=== PATIENT | male | born 1955 | race African-American/Black ===

== ENCOUNTER → 2017-05-15 | Outpatient (CLI) | payer OTHER ==
--- NOTE | 2017-05-15 19:44 | Diagnostic Imaging Report ---
PROCEDURE:X-RAY ABDOMEN - KUB COMPARISON:[facility], DX, ABDOMEN-1VIEW (KUB), 05/08/2016, 17:18. INDICATIONS:CHECK UP, stones FINDINGS: Nonobstructed bowel gas pattern. Stable 3 mm radiopaque density projecting in the lower pole of the left kidney. Previously visualized calcific density in the right renal shadow as well as a second calcific density in the left renal shadow are not clearly seen on the current exam. No calcifications project over the expected course of the ureters or bladder. No acute bony abnormalities. CONCLUSION: Stable 3 mm radiopaque density in the lower pole of the left kidney, likely a nonobstructing calculus. Bogdan Swan M.D. Dictated by: Bogdan Swan M.D. on 05/15/2017 at 19:52 Electronically approved by: Bogdan Swan M.D. on 05/15/2017 at 19:52
== END ==
LOC: RAD 16:36
PROVIDERS: ATTEND Urology
DX: N20.0 Calculus of kidney (principal)
CPT/HCPCS: 74000

== ENCOUNTER → 2017-12-27 | Outpatient (CLI) | payer OTHER ==
--- NOTE | 2017-12-27 13:08 | Diagnostic Imaging Report ---
PROCEDURE:X-RAY ABDOMEN - KUB COMPARISON:KUB 05/22/17 and KUB 05/08/16. INDICATIONS:CALCULUS OF THE KIDNEY FINDINGS: Again noted is a 3 mm calcification projecting over the left lower pole kidney and 2 mm calcification which projects over the mid pole. No calcifications project over the expected course of the ureters or the bladder. There is a non-obstructed bowel-gas pattern. There are no acute osseous abnormalities. CONCLUSION: Stable 2-3 mm calcifications projecting over the left kidney, likely renal stones. Dictated by: GAURANG GARCIA M.D. on 12/27/2017 at 13:14 Electronically approved by: GAURANG GARCIA M.D. on 12/27/2017 at 13:14
== END ==
LOC: RAD 12:11
PROVIDERS: ATTEND Urology
DX: N20.0 Calculus of kidney (principal)
CPT/HCPCS: 74018

== ENCOUNTER 2018-11-30 09:00 | Inpatient (IN) | payer OTHER, MEDICARE ==
[2018-11-29 09:41] LABS: BASOPHILS % 0.4 % (0.0-1.0); EOSINOPHILS # (AUTO) 0.4 (0.0-0.4); EOSINOPHILS % 3.8 % (0.0-6.0); HEMATOCRIT 40.5 % (38.2-49.6); HEMOGLOBIN 13.5 g/dL (14.0-18.0); LYMPHOCYTES # (AUTO) 3.2 (1.0-3.2); LYMPHOCYTES % 33.2 % (18.0-39.1); MEAN CORPUSCULAR HEMOGLOBIN 29.2 pg (28-32); MEAN CORPUSCULAR HGB CONC 33.3 g/dL (31-35); MEAN CORPUSCULAR VOLUME 87.7 fL (81-99); MONOCYTES # (AUTO) 0.7 (0.2-0.8); MONOCYTES % 7.3 % (4.4-11.3); NEUTROPHILS # (AUTO) 5.3 (2.1-6.9); NEUTROPHILS % 54.9 % (38.7-80.0); PLATELET COUNT 286 x10e3/uL (140-360); RED BLOOD COUNT 4.62 x10e6/uL (4.3-5.7); RED CELL DISTRIBUTION WIDTH 13.6 % (11.7-14.4)
[2018-11-29 09:57] LABS: ANION GAP 12.9 mmol/L (8-16); CALCIUM 10.4 mg/dL (8.4-10.2); CREATININE, SERUM 1.47 mg/dL (0.72-1.25); POTASSIUM 3.9 mmol/L (3.5-5.1)
--- NOTE | 2018-11-29 10:23 | Diagnostic Imaging Report ---
EXAMINATION: CHEST 2 VIEWS INDICATION: Preoperative COMPARISON: None FINDINGS: TUBES and LINES: None. LUNGS: The lung volumes are normal. No focal consolidation or pulmonary edema. PLEURA: No pleural effusion or pneumothorax. HEART AND MEDIASTINUM: The cardiomediastinal silhouette is normal in size and contour. BONES AND SOFT TISSUES: No acute fracture or dislocation. Mild degenerative changes of the visualized spine. UPPER ABDOMEN: No free air under the diaphragm. IMPRESSION: No focal pneumonia or pulmonary edema. Signed by: Feliciano Morrell MD on 11/29/2018 10:20 AM
[~2018-11-30] VITALS: Ht 175.3 cm; Wt 95.7 kg
[~2018-11-30 09:00] MED LIST: ATORVASTATIN CA20 MG PO; B&O 60MG R/S 60 MG SUPP PR ONE; BYSTOLIC10 MG PO; CEFTRIAXONE SOD 1 GM/NS 50 ML 50 ML IV ONE; FINASTERIDE5 MG PO; FLOMAX0.4 MG PO; GENTAMICIN 80MG/NS 100 ML 200 ML IV ONE; IOPAMIDOL 300MG/ML 50ML INFUS..BTL IV ONE; LOSARTAN POTASS25 MG PO; METFORMIN HCL500 MG PO; NEXIUM40 MG PO; SODIUM CHLORIDE 0.9% 1000ML 1,000 ML ONE
[2018-11-30] MEDS ORDERED: ACETAMINOPHEN/CODEINE 300MG - 30MG TAB PO PRN (10:00)
[2018-11-30] MEDS ORDERED: DIPHENHYDRAMINE HCL INJ 50 MG/ML VIAL IM PRN (10:00)
[2018-11-30] MEDS ORDERED: DIPHENHYDRAMINE HCL 25 MG CAP PO PRN (10:00)
[2018-11-30] MEDS ORDERED: ONDANSETRON HCL INJ 2MG/ML 2ML 2 MG/ML VIAL IV PRN (10:00)
[2018-11-30] MEDS ORDERED: BELLADONNA/OPIUM 30 MG SUPP RC PRN (10:00)
[2018-11-30] MEDS ORDERED: FENTANYL CITRATE/PF 100MCG/2 ML INJ ONE ×2 (10:03→15:02)
[2018-11-30] MEDS ORDERED: HYDROMORPHONE 2MG/ML 2 MG/ML ML ONE (10:30)
--- OUTSIDE RECORDS SUMMARY | 2018-11-30 11:40 | XMS REPORT ---
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 Allergies, Adverse Reactions, Alerts This patient has no known allergies or adverse reactions. Medications This patient has no known medications. Encounters Start Date/Time End Date/Time Encounter Type Admission Type Attending [facility] Care Department Encounter ID 2018-11-04 15:22:00 2018-11-04 15:22:00 Emergency E [facility]SE [id number] Results Test Description Test Time Test Comments Text Results Atomic Results Result Comments CHEST 2 VIEWS 2018-11-29 10:19:00 [place] [id number] Patient Name: OVIDIO BYRNE MR #: [id number] : 1955 Age/Sex: 63/M Req #: [id number] Adm Physician: Ordered by: LESLIE MACKEY MD Report #: [id number] Location: OR Room/Bed: Procedure: [id number] DX/CHEST 2 VIEWS Exam Date: 11/29/18 Exam Time: 919 REPORT STATUS: Signed EXAMINATION: CHEST 2 VIEWS INDICATION: Preoperative COMPARISON: None FINDINGS: TUBES and LINES: None. LUNGS: The lung volumes are normal. No focal consolidation or pulmonary edema. PLEURA: No pleural effusion or pneumothorax. HEART AND MEDIASTINUM: The cardiomediastinal silhouette is normal in size and contour. BONES AND SOFT TISSUES: No acute fracture or dislocation. Mild degenerative changes of the visualized spine. UPPER ABDOMEN: No free air under the diaphragm. IMPRESSION: No focal pneumonia or pulmonary edema. Signed by: Dany Herrera MD on 11/29/2018 10:20 AM Dictated By: DANY HERRERA MD 1020 Transcribed By: JEROME on 11/29/18 1020 COPY TO: LESLIE MACKEY MD ABDOMEN-1VIEW (KUB) 2017-12-27 13:14:00 [place] [id number] Patient Name: OVIDIO BYRNE MR #: [id number] : 1955 Age/Sex: 62/M Req #: [id number] Adm Physician: Ordered by: LESLIE MACKEY MD Report #: [id number] Location: [facility] Room/Bed: Procedure: [id number] DX/ABDOMEN-1VIEW (KUB) Exam Date: 12/27/17 Exam Time: 1240 REPORT STATUS: Signed PROCEDURE: X-RAY ABDOMEN - KUB COMPARISON: KUB 05/22/17 and KUB 05/08/16. INDICATIONS: CALCULUS OF THE KIDNEY FINDINGS: Again noted is a 3 mm calcification projecting over the left lower pole kidney and 2 mm calcification which projects over the mid pole. No calcifications project over the expected course of the ureters or the bladder. There is a non-obstructed bowel-gas pattern. There are no acute osseous abnormalities. CONCLUSION: Stable 2-3 mm calcifications projecting over the left kidney, likely renal stones. Dictated by: GAURANG GARCIA M.D. on 12/27/2017 at 13:14 Electronically approved by: GAURANG GARCIA M.D. on 12/27/2017 at 13:14 Dictated By: GAURANG GARCIA MD 1314 Transcribed By: NURY on 12/27/17 1314 COPY TO: LESLIE MACKEY MD ABDOMEN-1VIEW (KUB) [place] [address] Patient Name: OVIDIO BYRNE MR #: [id number] : 1955 Age/Sex: 62/M Req #: [id number] Adm Physician: Ordered by: LESLIE MACKEY MD Report #: [id number] Location: [facility] Room/Bed: Procedure: [id number] DX/ABDOMEN-1VIEW (KUB) Exam Date: 05/15/17 Exam Time: 1648 REPORT STATUS: Signed PROCEDURE: X-RAY ABDOMEN - KUB COMPARISON: [facility], DX, ABDOMEN-1VIEW (KUB), 05/08/2016, 17:18. INDICATIONS: CHECK UP, stones FINDINGS: Nonobstructed bowel gas pattern. Stable 3 mm radiopaque density projecting in the lower pole of the left kidney. Previously visualized calcific density in the right renal shadow as well as a second calcific density in the left renal shadow are not clearly seen on the current exam. No calcifications project over the expected course of the ureters or bladder. No acute bony abnormalities. CONCLUSION: Stable 3 mm radiopaque density in the lower pole of the left kidney, likely a nonobstructing calculus. Zahira Swan M.D. Dictated by: Zahira Swan M.D. on 05/15/2017 at 19:52 Electronically approved by: Zahira Swan M.D. on 05/15/2017 at 19:52 Dictated By: ZAHIRA SWAN MD 51 Transcribed By: NURY on 05/15/171951 COPY TO: LESLIE MACKEY MD
--- NOTE | 2018-11-30 11:50 | NUR ---
received report from brazing furnace feeder. pt s/p cystoscopy, laser of stones, and TURP, 24 irish jones with continuous irrigation, output is pinkish red. vitals 105/57, hr 73, rr 18, o2 sat 99% on RA, 97.4 F. pt last received 0.5mg of dilaudid at 1027 am in PACU. pt has PHUONG hose and SCD devices bilateral. R hand 20g with LR runnning.
[2018-11-30 12:13] LABS: BASOPHILS % 0.2 % (0.0-1.0); EOSINOPHILS % 0.1 % (0.0-6.0); HEMATOCRIT 40.2 % (38.2-49.6); HEMOGLOBIN 13.4 g/dL (14.0-18.0); LYMPHOCYTES # (AUTO) 1.7 (1.0-3.2); LYMPHOCYTES % 10.5 % (18.0-39.1); MEAN CORPUSCULAR HEMOGLOBIN 29.1 pg (28-32); MEAN CORPUSCULAR HGB CONC 33.3 g/dL (31-35); MEAN CORPUSCULAR VOLUME 87.4 fL (81-99); MONOCYTES # (AUTO) 0.5 (0.2-0.8); NEUTROPHILS # (AUTO) 13.7 (2.1-6.9); NEUTROPHILS % 85.8 % (38.7-80.0); PLATELET COUNT 255 x10e3/uL (140-360); RED CELL DISTRIBUTION WIDTH 13.5 % (11.7-14.4)
[2018-11-30 12:23] VITALS: BP 135/68
[2018-11-30] MEDS ORDERED: B&O 60MG R/S 60 MG SUPP PR PRN (12:30)
[2018-11-30] MEDS ORDERED: DEXTROSE 50% SYRINGE 50 ML IV PRN (12:30)
[2018-11-30 12:31] LABS: ANION GAP 15.5 mmol/L (8-16); CALCIUM 9.4 mg/dL (8.4-10.2); CREATININE, SERUM 1.51 mg/dL (0.72-1.25); POTASSIUM 4.5 mmol/L (3.5-5.1)
--- NOTE | 2018-11-30 12:36 | History and Physical ---
CABLE TELEVISION TECHNICIAN: Dr. Bi Rodas. The patient is status post TURP procedure, cystoscopy. He had gross hematuria postprocedure, Davidson catheter. The patient require continuous urinary bladder irrigation. HISTORY: A 63-year-old male with recurrent urinary tract infection and urinary retention, now is status post TURP procedure. The patient has gross hematuria. He will continue with irrigation at this time. The patient is otherwise stable. PAST MEDICAL HISTORY: Enlarged prostate, recurrent prostatitis, dyslipidemia, reflux, hypertension, diabetes type 2 on diet and metformin. SOCIAL HISTORY: The patient does not smoke or use alcohol. No recreational drug use. ALLERGIES: NO KNOWN ALLERGIES. HOME MEDICATIONS: Lipitor, Nexium, finasteride, losartan, metformin, Bystolic, and Flomax. PHYSICAL EXAMINATION: VITAL SIGNS: Temperature is 98, blood pressure 105/57, pulse rate 70, respirations 18. GENERAL: The patient is not in acute distress. He is awake. HEENT: Normocephalic, atraumatic. Pupils reactive. Anicteric. NECK: Supple grossly. PULMONARY: Diminished breath sounds. CARDIOVASCULAR: S1, S2. Regular rate and rhythm. ABDOMEN: Soft. Davidson catheter in place. EXTREMITIES: No cyanosis or edema. NEUROLOGIC: No gross focal deficit. LABORATORY DATA: WBC is 15.9, hemoglobin is 13, hematocrit of 40, platelets 225. Chemistry; sodium 139, potassium 3.9, chloride 103, bicarb 27, BUN is 15, creatinine 1.4, glucose is 158. IMPRESSION: 1. Status post TURP procedure. 2. Gross hematuria. 3. Reactive leukocytosis most likely. 4. Slight increase in creatinine, most likely postop. PLAN: Continue to monitor the patient closely. IV fluids. Resume some home medication. We will hold off the metformin due to creatinine of 1.47. We will continue with other medication. We will check the patient's blood pressure, but we will hold off the losartan for now. Continue with Bystolic. We will monitor the patient closely. We will check the patient's lab work as well. MD MARYCHUY Painter/PAOLA /[id number]
[2018-11-30 12:50] VITALS: BP 135/68
[2018-11-30] MEDS: PHENAZOPYRIDINE HCL 100 MG TAB PO SCH ×2 (13:01→16:45)
[2018-11-30] MEDS: SOD CHL 0.45%/POT CHL 20MEQ 1,000 ML IV SCH ×2 (13:02→18:30)
[2018-11-30] MEDS ORDERED: KETAMINE HCL INJ 50 MG/ML 10 ML VIAL ONE (15:02)
[2018-11-30] MEDS ORDERED: PANTOPRAZOLE SOD 40 MG TABEC PO ONE (15:45)
[2018-11-30] MEDS: INSULIN LISPRO 100 UNIT/1 ML 3ML VIAL SQ SCH ×2 (16:30→21:51)
[2018-11-30] MEDS: DOCUSATE SODIUM 100 MG CAP PO SCH (16:45)
[2018-11-30] MEDS ORDERED: METFORMIN HCL 500 MG TAB PO SCH (17:00)
[2018-11-30 17:42] VITALS: BP 138/74
[2018-11-30] MEDS ORDERED: ONDANSETRON HCL INJ 2MG/ML 2ML 2 MG/ML VIAL ONE (18:05)
[2018-11-30] MEDS ORDERED: DEXAMETHASONE SOD PHOS INJ 4 MG/ML VIAL ONE (18:05)
[2018-11-30] MEDS ORDERED: PROPOFOL IV EMULSION 10 MG/ML 20 ML VIAL ONE (18:05)
[2018-11-30] MEDS ORDERED: LIDOCAINE HCL 2% LOCAL INJ 5 ML SDV VIAL INJ ONE (18:05)
[2018-11-30 20:00] VITALS: BP 125/72
[2018-11-30] MEDS ORDERED: MAGNESIUM/ALUMINUM/SIMETHICONE 30 ML UDC PO PRN (20:00)
[2018-11-30] MEDS: ATORVASTATIN 20 MG TAB PO SCH (20:46)
[2018-11-30] MEDS: NEBIVOLOL 10 MG TAB PO SCH (20:47)
[2018-11-30] MEDS ORDERED: LOSARTAN POTASSIUM 25 MG TAB PO SCH (21:00)
[2018-12-01] VITALS (7 sets, daily range): BP systolic 100–159; BP diastolic 60–76
[2018-12-01] MEDS: SOD CHL 0.45%/POT CHL 20MEQ 1,000 ML IV SCH (02:30)
[2018-12-01] MEDS: ACETAMINOPHEN 325 MG TAB PO PRN (03:46)
[2018-12-01 05:06] LABS: BASOPHILS % 0.3 % (0.0-1.0); EOSINOPHILS # (AUTO) 0.2 (0.0-0.4); EOSINOPHILS % 1.5 % (0.0-6.0); HEMOGLOBIN 13.5 g/dL (14.0-18.0); LYMPHOCYTES # (AUTO) 1.6 (1.0-3.2); LYMPHOCYTES % 11.6 % (18.0-39.1); MEAN CORPUSCULAR HEMOGLOBIN 29.1 pg (28-32); MEAN CORPUSCULAR HGB CONC 33.8 g/dL (31-35); MEAN CORPUSCULAR VOLUME 86.2 fL (81-99); MONOCYTES # (AUTO) 0.9 (0.2-0.8); MONOCYTES % 6.9 % (4.4-11.3); NEUTROPHILS # (AUTO) 10.8 (2.1-6.9); NEUTROPHILS % 79.3 % (38.7-80.0); PLATELET COUNT 250 x10e3/uL (140-360); RED BLOOD COUNT 4.64 x10e6/uL (4.3-5.7); RED CELL DISTRIBUTION WIDTH 13.4 % (11.7-14.4)
[2018-12-01 05:22] LABS: ANION GAP 13.3 mmol/L (8-16); BLOOD UREA NITROGEN 13 mg/dL (7-26); BUN/CREATININE RATIO 9 (6-25); CALCIUM 9.1 mg/dL (8.4-10.2); CARBON DIOXIDE 25 mmol/L (22-29); CHLORIDE 104 mmol/L (98-107); CREATININE, SERUM 1.37 mg/dL (0.72-1.25); EST GLOMERULAR FILTRATION RATE > 60 ML/MIN (60-); GLUCOSE 149 mg/dL (74-118); POTASSIUM 4.3 mmol/L (3.5-5.1); SODIUM 138 mmol/L (136-145)
[2018-12-01] MEDS ORDERED: SODIUM CHLORIDE 0.9% 250ML 250 ML ONE (06:06)
[2018-12-01] MEDS ORDERED: CEFTRIAXONE SOD 1 GM/NS 50 ML 50 ML IV SCH (06:30)
--- NOTE | 2018-12-01 06:56 | NUR ---
report given to day nurse. patient is resting comfortably in bed. bed is in lowest position and call reed is within reach.
[2018-12-01] MEDS: PANTOPRAZOLE SOD 40 MG TABEC PO SCH (08:00)
[2018-12-01] MEDS: INSULIN LISPRO 100 UNIT/1 ML 3ML VIAL SQ SCH ×4 (08:30→21:27)
--- NOTE | 2018-12-01 09:17 | NUR ---
MD WOODSON INTO SEE PT, DISCUSSED POC
[2018-12-01] MEDS: DOCUSATE SODIUM 100 MG CAP PO SCH ×2 (09:31→16:42)
[2018-12-01] MEDS: PHENAZOPYRIDINE HCL 100 MG TAB PO SCH ×3 (09:31→17:52)
[2018-12-01] MEDS: TAMSULOSIN HCL 0.4 MG CAP PO SCH (09:31)
[2018-12-01] MEDS: FINASTERIDE 5 MG TAB PO SCH (09:31)
--- NOTE | 2018-12-01 15:22 | NUR ---
SITTING IN BEDSIDE CHAIR, VOICES NO C/O PAIN, CALL LIGHT WITHIN REACH
--- NOTE | 2018-12-01 19:08 | NUR ---
Beside report walking round complete. Pt resting in bed and in no apparent distress. Pt on CBI. All safety measures ensured and pt call reed near. Pt encouraged to use call reed for assistance.
[2018-12-01] MEDS: NEBIVOLOL 10 MG TAB PO SCH (21:26)
[2018-12-01] MEDS: ATORVASTATIN 20 MG TAB PO SCH (21:26)
[2018-12-02] VITALS (8 sets, daily range): BP systolic 107–130; BP diastolic 60–73
[2018-12-02] MEDS: ACETAMINOPHEN 325 MG TAB PO PRN ×2 (05:13→23:39)
[2018-12-02 05:46] LABS: BASOPHILS % 0.3 % (0.0-1.0); EOSINOPHILS # (AUTO) 0.6 (0.0-0.4); EOSINOPHILS % 4.8 % (0.0-6.0); HEMATOCRIT 39.3 % (38.2-49.6); HEMOGLOBIN 13.2 g/dL (14.0-18.0); LYMPHOCYTES # (AUTO) 1.1 (1.0-3.2); LYMPHOCYTES % 9.3 % (18.0-39.1); MEAN CORPUSCULAR HEMOGLOBIN 29.3 pg (28-32); MEAN CORPUSCULAR HGB CONC 33.6 g/dL (31-35); MEAN CORPUSCULAR VOLUME 87.3 fL (81-99); MONOCYTES # (AUTO) 0.9 (0.2-0.8); MONOCYTES % 7.7 % (4.4-11.3); NEUTROPHILS % 77.6 % (38.7-80.0); PLATELET COUNT 225 x10e3/uL (140-360); RED CELL DISTRIBUTION WIDTH 13.4 % (11.7-14.4)
[2018-12-02 06:09] LABS: ANION GAP 13.3 mmol/L (8-16); CALCIUM 9.1 mg/dL (8.4-10.2); CREATININE, SERUM 1.61 mg/dL (0.72-1.25); POTASSIUM 4.3 mmol/L (3.5-5.1)
--- NOTE | 2018-12-02 07:00 | NUR ---
received am report from RN. morning rounds done. pt is sleeping, no s/s of distress. cont bladder irrigation is running, output is clear, pale yellow.
--- NOTE | 2018-12-02 07:15 | NUR ---
Bedside report walking rounds complete with day shift RN
--- NOTE | 2018-12-02 07:38 | NUR ---
pt is requesting protonix tablet, states that he needs to take it 30 minutes before breakfast. protonix is scheduled for 0900, will change time to 0730.
[2018-12-02] MEDS: PANTOPRAZOLE SOD 40 MG TABEC PO SCH (07:39)
[2018-12-02] MEDS: INSULIN LISPRO 100 UNIT/1 ML 3ML VIAL SQ SCH ×4 (08:30→21:35)
[2018-12-02] MEDS: DOCUSATE SODIUM 100 MG CAP PO SCH ×2 (08:30→16:57)
[2018-12-02] MEDS: TAMSULOSIN HCL 0.4 MG CAP PO SCH (08:30)
[2018-12-02] MEDS: PHENAZOPYRIDINE HCL 100 MG TAB PO SCH (08:30)
[2018-12-02] MEDS: FINASTERIDE 5 MG TAB PO SCH (08:30)
--- NOTE | 2018-12-02 16:06 | Progress Note ---
DATE: 12/02/2018 Medicine Progress Note SUBJECTIVE: The patient is status post TURP performed. The patient is doing well with no complaints. No overnight events. His urine seems to have cleared up, more orange in color likely due to Pyridium. OBJECTIVE: VITAL SIGNS: Temperature 96.5, pulse 84, respiratory rate is 20, blood pressure 130/73, and pulse ox 98% on room air. GENERAL: Not in acute distress. Alert and oriented x3. Cooperative on examination. HEENT: Head is normocephalic and atraumatic. Eyes; pupils are equal, round, and reactive to light bilaterally. Extraocular movements are intact bilaterally. Throat, no evidence of erythema or exudates in the posterior pharynx. Has poor dentition. NECK: Supple. Good range of motion. PULMONARY: Clear to auscultation bilaterally. No wheezing, no rales, no rhonchi, no crackles appreciated. CARDIOVASCULAR: Positive S1, S2. No murmurs, rubs, or gallops appreciated. ABDOMEN: Soft, nondistended, and nontender to palpation. Bowel sounds present. MUSCULOSKELETAL: Strength is 5/5 throughout. No evidence of any muscle deficits on examination. No weakness appreciated. NEUROLOGICAL: Cranial nerves 2 through 12 grossly intact. No evidence of any neurological deficits on exam. SKIN: Intact. Warm to touch. Good cap refill. PSYCHIATRIC: Normal affect and mood. EXTREMITIES: No edema. Good range of motion throughout. LABORATORY DATA: Lab findings show a white count 11.6, hemoglobin 13, hematocrit is 39, and platelets of 225. Chemistry; sodium 137, potassium 4.3, chloride 103, bicarb 25, anion gap of 13, BUN of 16, creatinine 1.6, glucose 160, calcium 9.1, magnesium is 1.5. MICROBIOLOGY: None. IMAGING: None. IMPRESSION: 1. Status post TURP secondary to benign prostatic hypertrophy. 2. Type 2 diabetes. 3. Hypertension. PLAN: His urine has seemed to have cleared up, now it is more orange in color. He is afebrile, vital signs are stable. It seems like he is doing well today. Await final recommendation by Urology about discharge. We are going to resume same home medications. Medications have been reviewed. Vital signs stable, labs reviewed and stable. The patient is due to being discharged, possibly we will discharge tomorrow. MD YUE Saeed/PAOLA /[id number]
[2018-12-02] MEDS: ATORVASTATIN 20 MG TAB PO SCH (21:34)
[2018-12-02] MEDS: NEBIVOLOL 10 MG TAB PO SCH (21:35)
[2018-12-03] VITALS: BP 116/58
[2018-12-03 04:00] VITALS: BP 124/71
[2018-12-03 06:40] LABS: BASOPHILS % 0.3 % (0.0-1.0); EOSINOPHILS # (AUTO) 0.8 (0.0-0.4); EOSINOPHILS % 6.9 % (0.0-6.0); HEMATOCRIT 37.1 % (38.2-49.6); HEMOGLOBIN 12.6 g/dL (14.0-18.0); LYMPHOCYTES # (AUTO) 1.5 (1.0-3.2); LYMPHOCYTES % 13.8 % (18.0-39.1); MEAN CORPUSCULAR HEMOGLOBIN 29.4 pg (28-32); MEAN CORPUSCULAR VOLUME 86.5 fL (81-99); MONOCYTES % 9.1 % (4.4-11.3); NEUTROPHILS # (AUTO) 7.6 (2.1-6.9); NEUTROPHILS % 69.6 % (38.7-80.0); PLATELET COUNT 223 x10e3/uL (140-360); RED BLOOD COUNT 4.29 x10e6/uL (4.3-5.7); RED CELL DISTRIBUTION WIDTH 13.2 % (11.7-14.4)
[2018-12-03 06:45] LABS: ANION GAP 12.3 mmol/L (8-16); CALCIUM 9.3 mg/dL (8.4-10.2); CREATININE, SERUM 1.57 mg/dL (0.72-1.25); POTASSIUM 4.3 mmol/L (3.5-5.1)
--- NOTE | 2018-12-03 07:00 | NUR ---
RECEIVED AM REPORT FROM RN. MORNING ROUNDS DONE. PT IS OOB AMBULATING IN THE ROOM, NO S/S OF DISTRESS. URINE COLLECTION OVER NIGHT APPEARS CLEAR AND DARK YELLOW. WILL CONTINUE TO MONITOR URINE APPEARANCE TODAY.
--- NOTE | 2018-12-03 07:00 | NUR ---
REPORT GIVEN TO ONCOMING NURSE.WALKING ROUNDS MADE.PT AMBULATING IN ROOM WITH NO S/S OF DISTRESS.
[2018-12-03] MEDS ORDERED: PANTOPRAZOLE SOD 40 MG TABEC PO SCH (08:00)
[2018-12-03 08:11] VITALS: BP 140/75
[2018-12-03 08:20] VITALS: BP 140/75
[2018-12-03] MEDS: INSULIN LISPRO 100 UNIT/1 ML 3ML VIAL SQ SCH ×2 (08:20→12:30)
[2018-12-03] MEDS: DOCUSATE SODIUM 100 MG CAP PO SCH (08:21)
[2018-12-03] MEDS: TAMSULOSIN HCL 0.4 MG CAP PO SCH (08:21)
[2018-12-03] MEDS: FINASTERIDE 5 MG TAB PO SCH (08:21)
[2018-12-03 12:07] VITALS: BP 134/68
[2018-12-03 15:57] VITALS: BP 115/68
--- NOTE | 2018-12-04 02:59 | Discharge Summary ---
FINAL DISCHARGE DIAGNOSES: 1. Status post transurethral resection of the prostate secondary to benign prostatic hypertrophy. 2. Type 2 diabetes. 3. Hypertension. CONSULTANTS: Urology. PHYSICAL EXAMINATION: VITAL SIGNS: Temperature is 97.3, pulse 82, respiratory rate is 18, blood pressure 115/68, pulse ox 100% on room air. LABORATORY FINDINGS: Show white count is 10.9, hemoglobin 10.6, hematocrit 37, platelets of 223. Chemistry; sodium 133, potassium 4.3, chloride 100, bicarb 25, anion gap of 12, BUN is 18, creatinine 1.5, glucose 153, calcium 9.3, magnesium 1.5. MICROBIOLOGY: None. IMAGING STUDIES: Chest x-ray, no focal pneumonia and pulmonary edema. HOSPITAL COURSE: This is a 63-year-old male, who came in for an elective status post transurethral resection of the prostate, TURP procedure that was performed by Urology. Postoperatively, the patient was doing well. He did have some hematuria, which is normal findings postoperatively. Dr. Rodas of Urology was following very closely. His hemoglobin maintained stable throughout the hospital course. His white count was improved to 10.9 prior to being discharged home. He had no source of infection. No cough. No congestion or any source of infection at this time. There was a temperature on discharge at 97.2, but there was one recorded the night before, T-max 100.5, but this is secondary to the patient having multiple blankets, and the patient was not given any Tylenol for a repeat temperature of 98.1. I discussed this with the nurses. She reports that this is likely to be a false reading. I discussed this with the patient as well and he does report to me he has had several blankets and this is likely the etiology. He is currently doing well. He has no complaints at this time, and he was cleared for discharge home. He was discharged home on oral antibiotics as well as pain control as per Urology recommendations. On discharge, the patient was stable, doing well, normotensive, afebrile, and was tolerating diet well with ambulating. He had no other issues at this time. He was cleared for discharge by Urology. On the day of discharge, vital signs were stable, labs reviewed and stable. The patient was seen, evaluated, examined thoroughly on the day of discharge. No other complaints. The patient verbalized understanding and agrees with plan of care. A followup appointment as an outpatient with the primary care physician in 1 week and Urology in 2 weeks' time. MEDICATIONS: See med reconciliation form. DISPOSITION: Home. CONDITION: Stable. DIET: Heart healthy. In the event of any worsening symptoms, the patient was advised to come back to the ED for further evaluation. Discharge summary took greater than 35 minutes. MD YUE Saeed/MODL /[id number]
--- NOTE | 2019-01-11 14:14 | Operative Report ---
DATE OF PROCEDURE: 11/30/2018 SURGEON: Bi Rodas MD PREOPERATIVE DIAGNOSES: 1. Obstructive benign prostatic hyperplasia, that is very large. 2. Large bladder stone. 3. Gross hematuria. POSTOPERATIVE DIAGNOSES: 1. Obstructive benign prostatic hyperplasia, that is very large. 2. Large bladder stone. 3. Gross hematuria. 4. Urethral stricture disease. OPERATION PERFORMED: 1. Cystourethroscopy with calibration and dilation of urethral stricture disease (separate procedure performed for the urethral stricture). 2. Cystourethroscopy with bilateral ureteral catheterization and retrograde ureteropyelography (separate procedure performed for gross hematuria). 3. Interpretation of retrograde ureteropyelography. 4. Supervision of fluoroscopy, no radiologist present. 5. Cystolitholapaxy of large bladder stone utilizing holmium laser (separate procedure performed for the large bladder stone). 6. Extensive complicated cystourethroscopy with transurethral resection of the prostate utilizing the plasma button electrode (separate procedure performed for the obstructive benign prostatic hyperplasia of the prostate that is very large, measuring [address] scanning). ANESTHESIA: General. COMPLICATIONS: None. CLINICAL SUMMARY: Juanito Robles is a 63-year-old man with the above preoperative diagnosis. He has had prior transurethral procedure with the above recurrent symptomatology. He is brought for the above management. He is aware of the risks of bleeding, infection, injury to adjacent structures, incontinence, impotence, retrograde ejaculation, need for additional procedures and he elected to proceed. OPERATIVE PROCEDURE IN DETAIL: Informed consent was verified. Juanito Robles was properly identified, taken to the operating room, placed on the cystoscopy table in supine position. Anesthesia was uneventfully begun. The patient was then carefully and gently repositioned in the dorsal lithotomy position with all pressure points well padded. His genitalia were prepared and draped in usual sterile fashion. A 22.5-Palestinian cystourethroscope sheath with the visual obturator in place was atraumatically inserted into the patient's distal urethra. We could not pass it beyond the fossa navicularis. Therefore, we calibrated this distal urethral stricture at approximately 36-55-Qaarst in size and progressively dilated to 30-Palestinian in size. We then easily able to place the cystoscope sheath and guided down the otherwise unremarkable urethra through the normal sphincteric region through the prostate bed, which was significant for obstruction at the level of the apex and distal prostatic urethra due to fusion of the two lateral lobes with significant amount of residual and regrowth BPH, caving and causing bilobar prostatic hypertrophy throughout the remainder of the prostatic urethra. We then went to the patient's bladder and the bladder was drained. Panendoscopy revealed very large bladder stone larger than 3 cm. We proceeded to perform holmium laser lithotripsy and pulverizing the stone to smaller fragments and then evacuated the stone and verified them endoscopically. There were no suspicious lesions within the bladder trabeculations were noted. A ureteral catheter was then utilized to cannulate each ureter and retrograde ureteral pyelograms were performed. Interpretation of retrograde ureteropyelography contrast was instilled in retrograde fashion bilaterally. No tumors, no stones, no diverticula. Unobstructed drainage was observed bilaterally fluoroscopically. The cystoscope was withdrawn. A continuous flow resectoscope was atraumatically placed. We then utilized a plasma button electrode to vaporize the prostate from the bladder neck tube, but never passed the verumontanum and down the surgical capsule. This was a rather extensive procedure on extremely large prostate. There was scarring within the prostatic tissue. There were also some intraprostatic stones that were identified and evacuated. Pinpoint electrocautery was utilized to achieve hemostasis. The resectoscope was withdrawn. The continuous-flow catheter was then placed. It was irrigated to and fro to ensure work properly. The clear efflux was obtained with continuous irrigation. Belladonna and opium suppository were placed revealing a large 50 g prostate, smooth, nonfluctuant without any nodules. The patient was then uneventfully reversed from anesthesia and taken to recovery room in stable condition. There were no complications during the procedure. He tolerated the procedure well. We will proceed with routine postoperative care and of course ongoing urological followup. Bi MD Clark [place]/MODL /[id number] cc: Jesenia Lu MD
== END 2018-12-03 16:47 | disposition home or self-care (01) | DRG 713 ==
LOC: EDSTATUS 09:00 → MED/SURG 11:37
PROVIDERS: ADMIT Internal Medicine; ATTEND Internal Medicine
PROC: 0TCB8ZZ Extirpation of Matter from Bladder, Via Natural or Artificial Opening Endoscopic (ICD-10-PCS; 2018-11-30)
PROC: 0VB08ZZ Excision of Prostate, Via Natural or Artificial Opening Endoscopic (ICD-10-PCS; principal; 2018-11-30 07:30)
DX: N40.1 Benign prostatic hyperplasia with lower urinary tract symptoms (principal); N39.0 Urinary tract infection, site not specified; N13.30 Unspecified hydronephrosis; N21.0 Calculus in bladder; Z87.442 Personal history of urinary calculi; N41.1 Chronic prostatitis; N20.0 Calculus of kidney; K42.9 Umbilical hernia without obstruction or gangrene; R31.0 Gross hematuria; E66.9 Obesity, unspecified; Z68.31 Body mass index [BMI] 31.0-31.9, adult; R35.1 Nocturia; N32.81 Overactive bladder; R39.15 Urgency of urination; N18.9 Chronic kidney disease, unspecified; R81 Glycosuria; R39.14 Feeling of incomplete bladder emptying; N32.3 Diverticulum of bladder; R33.8 Other retention of urine; E11.9 Type 2 diabetes mellitus without complications; Z79.84 Long term (current) use of oral hypoglycemic drugs; I12.9 Hypertensive chronic kidney disease with stage 1 through stage 4 chronic kidney disease, or unspecified chronic kidney disease; D72.829 Elevated white blood cell count, unspecified
CPT/HCPCS: 36415; 71046; 74420; 80048; 82948; 83735; 85025; 88300; 93005; J0696; J1100; J1580; J2001; J2405; J3010; J7030; J7050

== ENCOUNTER 2019-01-06 06:32 | Emergency (ER) | payer OTHER ==
[~2019-01-06] VITALS: Ht 175.3 cm; Wt 95.7 kg
[~2019-01-06 06:32] MED LIST changes: -B&O 60MG R/S 60 MG SUPP PR ONE; -CEFTRIAXONE SOD 1 GM/NS 50 ML 50 ML IV ONE; -GENTAMICIN 80MG/NS 100 ML 200 ML IV ONE; -IOPAMIDOL 300MG/ML 50ML INFUS..BTL IV ONE; -SODIUM CHLORIDE 0.9% 1000ML 1,000 ML ONE
[2019-01-06 06:56] LABS: BASOPHILS # (AUTO) 0.1 (0.0-0.1); BASOPHILS % 0.6 % (0.0-1.0); EOSINOPHILS # (AUTO) 0.4 (0.0-0.4); EOSINOPHILS % 4.8 % (0.0-6.0); HEMATOCRIT 39.6 % (38.2-49.6); HEMOGLOBIN 13.2 g/dL (14.0-18.0); LYMPHOCYTES # (AUTO) 2.9 (1.0-3.2); LYMPHOCYTES % 32.3 % (18.0-39.1); MEAN CORPUSCULAR HEMOGLOBIN 29.1 pg (28-32); MEAN CORPUSCULAR HGB CONC 33.3 g/dL (31-35); MEAN CORPUSCULAR VOLUME 87.4 fL (81-99); MONOCYTES # (AUTO) 0.6 (0.2-0.8); MONOCYTES % 7.1 % (4.4-11.3); NEUTROPHILS # (AUTO) 4.9 (2.1-6.9); NEUTROPHILS % 54.9 % (38.7-80.0); PLATELET COUNT 323 x10e3/uL (140-360); RED BLOOD COUNT 4.53 x10e6/uL (4.3-5.7); RED CELL DISTRIBUTION WIDTH 13.5 % (11.7-14.4)
[2019-01-06 06:56] LABS: BILIRUBIN,URINE NEGATIVE (NEGATIVE); CLARITY,URINE CLOUDY (CLEAR); COLOR,URINE RED (YELLOW); KETONES,URINE NEGATIVE (NEGATIVE); LEUKOCYTE ESTERASE ,URINE LARGE (NEGATIVE); NITRITE,URINE NEGATIVE (NEGATIVE); PROTEIN,URINE DIPSTICK 2+ (NEGATIVE); URINE UROBILINOGEN 0.2 mg/dL (0.2 - 1)
[2019-01-06 07:15] LABS: AMYLASE 70 U/L (25-125); LIPASE 35 U/L (8-78)
[2019-01-06 07:17] LABS: BACTERIA,URINE MANY /HPF; EPITHELIAL CELLS,URINE MANY /LPF; RBC,URINE >50 /HPF (0-5); WBC,URINE (MAN) >50 /HPF (0-5)
--- NOTE | 2019-01-06 07:34 | NUR ---
PATIENT RESTING QUIETLY AT THIS TIME; APPEARS IN NO DISTRESS. WARM BLANKET PROVIDED FOR COMFORT. PATIENT AWAITING CT SCAN
[2019-01-06 07:44] LABS: ALBUMIN 3.9 g/dL (3.5-5.0); ALBUMIN/GLOBULIN RATIO 1.2 (0.8-2.0); ANION GAP 12.3 mmol/L (8-16); CALCIUM 9.8 mg/dL (8.4-10.2); CREATININE, SERUM 1.57 mg/dL (0.72-1.25); POTASSIUM 4.3 mmol/L (3.5-5.1)
[2019-01-06] MEDS ORDERED: CEFTRIAXONE SOD 1 GM/NS 50 ML 50 ML IV ONE (08:15)
[2019-01-06] MEDS ORDERED: SODIUM CHLORIDE 0.9% 1000ML 1,000 ML IV STA (08:18)
--- NOTE | 2019-01-06 08:55 | NUR ---
POST VOID RESIDUAL 25 CC
[2019-01-06] MEDS ORDERED: IOPAMIDOL 370 MG/ML 200 ML INFUS..BTL INJ ONE (09:19)
[2019-01-06] MEDS ORDERED: SODIUM CHLORIDE 0.9% 50ML 50 ML ONE (09:19)
--- NOTE | 2019-01-06 10:06 | Diagnostic Imaging Report ---
EXAM: CT Abdomen and Pelvis WITH intravenous contrast INDICATION: Abdominal pain COMPARISON: None. TECHNIQUE: Abdomen and pelvis were scanned utilizing a multidetector helical scanner from the lung base to the pubic symphysis after administration of IV contrast. Coronal and sagittal reformations were obtained. Routine protocol was performed. Scan was performed when during portal venous phase. IV CONTRAST: 100mL of Isovue 370 ORAL CONTRAST: Water COMPLICATIONS: None RADIATION DOSE: Total DLP: 769.5 mGy*cm Dose modulation, iterative reconstruction, and/or weight based adjustment of the mA/kV was utilized to reduce the radiation dose to as low as reasonably achievable. FINDINGS: LOWER THORAX: Normal. HEPATOBILIARY: Innumerable scattered subcentimeter ossified granuloma throughout the liver. No other focal liver lesions. No biliary ductal dilation. Normal gallbladder. SPLEEN: Numerous calcified granulomas throughout the nonenlarged spleen. PANCREAS: No focal masses or ductal dilatation. ADRENALS: Normal. KIDNEYS/URETERS: No hydronephrosis. Nonobstructing renal calculi measure up to 3 mm on the left at the midpole and lower pole and 3 mm at the right lower pole. Simple appearing renal cysts measuring up to 1.5 cm on the right and 1.5 cm on the left. PELVIC ORGANS/BLADDER: Nodular hyperdense material at the dependent base of the bladder measuring 5 cm at widest dimension. PERITONEUM / RETROPERITONEUM: No free air or fluid. LYMPH NODES: No lymphadenopathy. VESSELS: Atherosclerotic calcifications of the nonaneurysmal abdominal aorta and major branches. GI TRACT: No abnormal bowel wall thickening. No bowel obstruction. Normal appendix. BONES AND SOFT TISSUES: No acute osseous injury. No suspicious lytic or blastic lesions. Degenerative changes of the visualized spine. IMPRESSION: Nodular hyperdense material at the dependent base of the bladder measures 5 cm at its widest dimension. Given recent history of transurethral resection of prostate, this likely represents dependent clot. Dena granulomas throughout the liver and spleen, likely related to prior granulomatous infection. No hydronephrosis. Nonobstructing bilateral renal calculi and cysts as above. Signed by: Feliciano Morrell MD on 01/06/2019 10:02 AM
[2019-01-06 11:26] VITALS: BP 147/87
== END 2019-01-06 11:28 | disposition home or self-care (01) ==
LOC: ER 06:32
DX: R10.33 Periumbilical pain (principal); N30.91 Cystitis, unspecified with hematuria; I10 Essential (primary) hypertension; E11.9 Type 2 diabetes mellitus without complications; K21.9 Gastro-esophageal reflux disease without esophagitis
CPT/HCPCS: 36415; 74177; 80053; 81001; 82150; 83690; 85025; 87086; 99284; J0696; J7030; Q9967

== ENCOUNTER 2019-05-16 05:44 | Inpatient (IN) | payer OTHER, MEDICARE ==
[2019-05-13 14:50] LABS: BASOPHILS % 0.5 % (0.0-1.0); EOSINOPHILS # (AUTO) 0.4 (0.0-0.4); EOSINOPHILS % 4.9 % (0.0-6.0); HEMATOCRIT 40.3 % (38.2-49.6); HEMOGLOBIN 13.2 g/dL (14.0-18.0); LYMPHOCYTES # (AUTO) 2.8 (1.0-3.2); LYMPHOCYTES % 35.5 % (18.0-39.1); MEAN CORPUSCULAR HEMOGLOBIN 28.3 pg (28-32); MEAN CORPUSCULAR HGB CONC 32.8 g/dL (31-35); MEAN CORPUSCULAR VOLUME 86.5 fL (81-99); MONOCYTES # (AUTO) 0.6 (0.2-0.8); MONOCYTES % 7.4 % (4.4-11.3); NEUTROPHILS % 51.3 % (38.7-80.0); PLATELET COUNT 269 x10e3/uL (140-360); RED BLOOD COUNT 4.66 x10e6/uL (4.3-5.7); RED CELL DISTRIBUTION WIDTH 13.3 % (11.7-14.4)
[2019-05-13 15:07] LABS: ANION GAP 14.7 mmol/L (8-16); CALCIUM 9.7 mg/dL (8.4-10.2); CREATININE, SERUM 1.42 mg/dL (0.72-1.25); POTASSIUM 4.7 mmol/L (3.5-5.1)
[~2019-05-16] VITALS: Ht 177.8 cm; Wt 103.4 kg
[2019-05-16] MEDS ORDERED: GENTAMICIN 80MG/NS 100 ML 100 ML IV ONE (06:33)
[2019-05-16] MEDS ORDERED: INSULIN REGULAR, HUMAN 100 UNIT/1 ML 3ML VIAL ONE (06:33)
[2019-05-16] MEDS ORDERED: CEFTRIAXONE SOD 1 GM/NS 50 ML 50 ML IV ONE (06:33)
[2019-05-16] MEDS ORDERED: B&O 60MG R/S 60 MG SUPP PR ONE (07:32)
[2019-05-16] MEDS ORDERED: IOPAMIDOL 300MG/ML 50ML INFUS..BTL IV ONE (07:32)
[2019-05-16] MEDS ORDERED: FLUCONAZOLE 200 MG/100 ML 100 ML IV ONE (08:08)
[2019-05-16] MEDS ORDERED: FENTANYL CITRATE/PF 100MCG/2 ML INJ ONE ×2 (08:47→09:44)
[2019-05-16] MEDS ORDERED: MIDAZOLAM HCL 2 MG/2 ML VIAL ONE (08:47)
[2019-05-16] MEDS ORDERED: MEPERIDINE HCL INJ 25 MG/ML VIAL ONE (09:21)
[2019-05-16] MEDS ORDERED: ACETAMINOPHEN/CODEINE 300MG - 30MG TAB PO PRN (09:30)
[2019-05-16] MEDS ORDERED: ONDANSETRON HCL INJ 2MG/ML 2ML 2 MG/ML VIAL IV PRN (09:30)
[2019-05-16] MEDS ORDERED: DIPHENHYDRAMINE HCL 25 MG CAP PO PRN (09:30)
[2019-05-16 10:29] LABS: BASOPHILS % 0.3 % (0.0-1.0); EOSINOPHILS # (AUTO) 0.2 (0.0-0.4); EOSINOPHILS % 1.6 % (0.0-6.0); HEMATOCRIT 41.6 % (38.2-49.6); HEMOGLOBIN 13.6 g/dL (14.0-18.0); LYMPHOCYTES % 18.1 % (18.0-39.1); MEAN CORPUSCULAR HEMOGLOBIN 28.3 pg (28-32); MEAN CORPUSCULAR HGB CONC 32.7 g/dL (31-35); MEAN CORPUSCULAR VOLUME 86.5 fL (81-99); MONOCYTES # (AUTO) 0.1 (0.2-0.8); MONOCYTES % 1.3 % (4.4-11.3); NEUTROPHILS # (AUTO) 8.5 (2.1-6.9); NEUTROPHILS % 78.2 % (38.7-80.0); PLATELET COUNT 285 x10e3/uL (140-360); RED BLOOD COUNT 4.81 x10e6/uL (4.3-5.7); RED CELL DISTRIBUTION WIDTH 13.2 % (11.7-14.4)
--- NOTE | 2019-05-16 10:44 | NUR ---
received report from CHAPIS Mujica from PACU; awaiting arrival of pt to room 102.
[2019-05-16 10:46] LABS: ANION GAP 13.3 mmol/L (8-16); CALCIUM 9.4 mg/dL (8.4-10.2); CREATININE, SERUM 1.55 mg/dL (0.72-1.25); POTASSIUM 5.3 mmol/L (3.5-5.1)
[2019-05-16 10:53] VITALS: BP 154/67
--- NOTE | 2019-05-16 10:54 | NUR ---
pt arrived to unit with CBI, jones in place, IV patent, pt awake, alert, no signs of distress.
[2019-05-16] MEDS ORDERED: SOD CHL 0.45%/POT CHL 20MEQ 1,000 ML IV SCH (11:30)
[2019-05-16 11:40] VITALS: BP 154/67
[2019-05-16] MEDS: PHENAZOPYRIDINE HCL 100 MG TAB PO SCH ×2 (12:25→18:27)
[2019-05-16] MEDS ORDERED: NEXIUM20 M1 PO (12:32)
[2019-05-16] MEDS ORDERED: NON-FORMULARY MEDICATION (Esomeprazole Magnesium (Nexium) 20 MG) PO SCH (12:45)
[2019-05-16] MEDS ORDERED: LIDOCAINE HCL 2% JELLY 5 ML TUBE ONE (12:57)
[2019-05-16] MEDS ORDERED: LIDOCAINE HCL 2% LOCAL INJ 5 ML SDV VIAL INJ ONE (12:57)
[2019-05-16] MEDS ORDERED: ROCURONIUM BROMIDE 10 MG/ML 5ML VIAL ONE (12:57)
[2019-05-16] MEDS ORDERED: PROPOFOL IV EMULSION 10 MG/ML 20 ML VIAL ONE (12:57)
[2019-05-16] MEDS ORDERED: DEXAMETHASONE SOD PHOS INJ 4 MG/ML VIAL ONE (12:57)
[2019-05-16] MEDS ORDERED: SEVOFLURANE INHAL SOLN 250 ML PEN BTL ONE (12:57)
[2019-05-16] MEDS ORDERED: ONDANSETRON HCL INJ 2MG/ML 2ML 2 MG/ML VIAL ONE (12:57)
[2019-05-16] MEDS ORDERED: CEFTRIAXONE SOD 1 GM/NS 50 ML 50 ML IV SCH (13:00)
[2019-05-16] MEDS: PANTOPRAZOLE SOD 40 MG TABEC PO SCH (13:03)
--- NOTE | 2019-05-16 14:00 | NUR ---
Visit made by the MELISSA Walkerlain. Student Support Advisor provided pastoral presence, hospitality, and supportive listening. Student Support Advisor informed pt/family of the scope of Hospice Educator Services and availability. SRIDHAR VICKERS Student Support Advisor Spiritual Care Department O: [phone] Pager: [phone] ([phone] number calling from)
[2019-05-16 16:31] VITALS: BP 124/65
[2019-05-16] MEDS: DOCUSATE SODIUM 100 MG CAP PO SCH (18:27)
--- NOTE | 2019-05-16 19:43 | NUR ---
PAGED DR. WOODSON REGARDING BLOOD GLUCOSE READING 403. AWAITING CALL BACK
--- NOTE | 2019-05-16 20:27 | NUR ---
SPOKE TO DR. WOODSON AT THIS TIME REGARDING BLOOD GLUCOSE 403. NEW ORDER RECEIVED.
[2019-05-16] MEDS ORDERED: DEXTROSE 50% SYRINGE 50 ML IV PRN (20:30)
[2019-05-16 20:38] VITALS: BP 146/77
--- NOTE | 2019-05-16 20:42 | NUR ---
SPOKE TO DR. WOODSON AT THIS TIME REGARDING PATIENT REQUEST OF TYLENOL. ALSO MADE AWARE OF POTASSIUM OF 5.3. NEW ORDERS RECEIVED FOR PRN TYLENOL AND TO DC IV FLUIDS.
[2019-05-16] MEDS: ACETAMINOPHEN 325 MG TAB PO PRN (20:53)
[2019-05-16] MEDS ORDERED: INSULIN LISPRO 100 UNIT/1 ML 3ML VIAL SQ SCH (21:00)
[2019-05-16] MEDS: INSULIN LISPRO 100 UNIT/1 ML 3ML VIAL SQ SCH (21:09)
[2019-05-17] VITALS (7 sets, daily range): BP systolic 118–139; BP diastolic 58–82
[2019-05-17 05:56] LABS: BASOPHILS % 0.1 % (0.0-1.0); EOSINOPHILS # (AUTO) 0.1 (0.0-0.4); EOSINOPHILS % 0.7 % (0.0-6.0); HEMATOCRIT 41.7 % (38.2-49.6); HEMOGLOBIN 13.4 g/dL (14.0-18.0); LYMPHOCYTES # (AUTO) 0.8 (1.0-3.2); LYMPHOCYTES % 5.5 % (18.0-39.1); MEAN CORPUSCULAR HEMOGLOBIN 27.9 pg (28-32); MEAN CORPUSCULAR HGB CONC 32.1 g/dL (31-35); MEAN CORPUSCULAR VOLUME 86.9 fL (81-99); MONOCYTES # (AUTO) 0.6 (0.2-0.8); NEUTROPHILS # (AUTO) 13.2 (2.1-6.9); NEUTROPHILS % 89.2 % (38.7-80.0); PLATELET COUNT 276 x10e3/uL (140-360); RED CELL DISTRIBUTION WIDTH 13.2 % (11.7-14.4)
[2019-05-17 06:14] LABS: ANION GAP 14.2 mmol/L (8-16); CALCIUM 9.4 mg/dL (8.4-10.2); CREATININE, SERUM 1.49 mg/dL (0.72-1.25); POTASSIUM 4.2 mmol/L (3.5-5.1)
--- NOTE | 2019-05-17 07:00 | NUR ---
BEDSIDE SHIFT REPORT RECEIVED FROM THE FLOWER CUTTER RN. EDUCATED PT ABOUT FALL PRECAUTIONS. CALL LIGHT WITH IN EASY REACH. INSTRUCTED PT TO USE CALL LIGHT FOR ALL THE NEEDS. PT VERBALIZED UNDERSTANDING. BED IS LOW AND LOCKED. SIDE RAILS X2. BED ALARM IS ON. PT DENIES NEEDS AT THIS TIME.
[2019-05-17] MEDS: INSULIN LISPRO 100 UNIT/1 ML 3ML VIAL SQ SCH ×4 (08:00→20:57)
[2019-05-17] MEDS: PANTOPRAZOLE SOD 40 MG TABEC PO SCH (08:30)
[2019-05-17] MEDS: DOCUSATE SODIUM 100 MG CAP PO SCH ×2 (08:37→17:13)
[2019-05-17] MEDS: PHENAZOPYRIDINE HCL 100 MG TAB PO SCH ×3 (08:38→17:13)
[2019-05-17] MEDS: FLUCONAZOLE 100 MG TAB PO SCH (08:38)
[2019-05-17] MEDS ORDERED: SODIUM CHLORIDE 0.9% 250ML 250 ML ONE (08:57)
[2019-05-17] MEDS ORDERED: CEFTRIAXONE SOD 1 GM/NS 50 ML 50 ML IV SCH (09:00)
[2019-05-17] MEDS ORDERED: MAGNESIUM SULFATE 2GM/50ML IV ONE (09:15)
[2019-05-17] MEDS ORDERED: ONDANSETRON HCL INJ 2MG/ML 2ML 2 MG/ML VIAL IV PRN (09:15)
[2019-05-17] MEDS ORDERED: INSULIN GLARGINE 100 UNITS/ML VIAL SQ ONE (09:15)
[2019-05-17] MEDS: ACETAMINOPHEN 325 MG TAB PO PRN ×2 (10:01→15:51)
[2019-05-17] MEDS: AZTREONAM 1 GM/NS 50 ML 50 ML IV SCH ×2 (10:34→17:13)
[2019-05-17] MEDS ORDERED: MAGNESIUM SULFATE 2GM/50ML 50 ML IV ONE (12:00)
--- NOTE | 2019-05-17 19:00 | NUR ---
BEDSIDE SHIFT REPORT GIVEN TO THE ELECTRIC TRIPPER MACHINE OPERATOR RN. PT DENIED FURTHER NEEDS.
[2019-05-17] MEDS ORDERED: ATORVASTATIN 20 MG TAB PO SCH (21:00)
[2019-05-17] MEDS ORDERED: NEBIVOLOL 10 MG TAB PO SCH (21:00)
[2019-05-17] MEDS ORDERED: INSULIN GLARGINE 100 UNITS/ML VIAL SQ SCH (21:00)
[2019-05-17] MEDS ORDERED: LOSARTAN POTASSIUM 25 MG TAB PO SCH (21:00)
[2019-05-18] VITALS: BP 127/65
[2019-05-18] MEDS: ACETAMINOPHEN 325 MG TAB PO PRN (01:00)
[2019-05-18] MEDS: AZTREONAM 1 GM/NS 50 ML 50 ML IV SCH ×2 (01:14→09:38)
[2019-05-18 04:00] VITALS: BP 133/76
[2019-05-18 06:04] LABS: BASOPHILS % 0.1 % (0.0-1.0); EOSINOPHILS # (AUTO) 0.6 (0.0-0.4); EOSINOPHILS % 6.5 % (0.0-6.0); HEMATOCRIT 40.4 % (38.2-49.6); HEMOGLOBIN 12.8 g/dL (14.0-18.0); MEAN CORPUSCULAR HEMOGLOBIN 27.4 pg (28-32); MEAN CORPUSCULAR HGB CONC 31.7 g/dL (31-35); MEAN CORPUSCULAR VOLUME 86.3 fL (81-99); MONOCYTES # (AUTO) 0.6 (0.2-0.8); MONOCYTES % 6.7 % (4.4-11.3); NEUTROPHILS # (AUTO) 6.8 (2.1-6.9); NEUTROPHILS % 74.9 % (38.7-80.0); PLATELET COUNT 218 x10e3/uL (140-360); RED BLOOD COUNT 4.68 x10e6/uL (4.3-5.7); RED CELL DISTRIBUTION WIDTH 13.2 % (11.7-14.4)
[2019-05-18 06:27] LABS: ANION GAP 13.4 mmol/L (8-16); CALCIUM 8.9 mg/dL (8.4-10.2); CREATININE, SERUM 1.62 mg/dL (0.72-1.25); POTASSIUM 4.4 mmol/L (3.5-5.1)
--- NOTE | 2019-05-18 07:00 | NUR ---
RECEIVED PATIENT AWAKE RESTING IN BED NO S/S OF DISTRESS. BED LOW, WHEELS LOCKED, SIDE RAILS X2. CALL LIGHT IN REACH WILL CONTINUE TO MONITOR PATIENT.
[2019-05-18 08:00] VITALS: BP 140/70
[2019-05-18] MEDS: PHENAZOPYRIDINE HCL 100 MG TAB PO SCH ×2 (08:21→11:55)
[2019-05-18] MEDS: FLUCONAZOLE 100 MG TAB PO SCH (08:21)
[2019-05-18] MEDS: DOCUSATE SODIUM 100 MG CAP PO SCH ×2 (08:21→16:48)
[2019-05-18] MEDS: PANTOPRAZOLE SOD 40 MG TABEC PO SCH (08:21)
[2019-05-18] MEDS ORDERED: TAMSULOSIN HCL 0.4 MG CAP PO SCH (09:00)
[2019-05-18] MEDS ORDERED: FINASTERIDE 5 MG TAB PO SCH (09:00)
[2019-05-18] MEDS: INSULIN LISPRO 100 UNIT/1 ML 3ML VIAL SQ SCH ×3 (09:14→16:30)
[2019-05-18 09:26] VITALS: BP 140/70
--- NOTE | 2019-05-18 11:15 | NUR ---
REMOVED PATIENTS DALAL. CATHETER TIP INTACT ON REMOVAL. PATIENT DUE TO VOID.
[2019-05-18 11:46] VITALS: BP 111/71
--- NOTE | 2019-05-18 13:00 | NUR ---
PATIENT HAS VOIDED SINCE DALAL REMOVAL.
--- NOTE | 2019-05-18 14:05 | NUR ---
Visit made by the Spiritual Care Department Pastoral Visitor, Sophia Houston. Pt sleeping soundly and no family present. Pastoral Visitor left a card describing availability of [employer] public relations and instructions on how to contact a [employer] public relations. SR[facility] Spiritual Care Department O: [phone] Pager: [phone] ([phone] calling from)
[2019-05-18] MEDS ORDERED: TYLENOL WITH C1 EACH PO (16:08)
[2019-05-18] MEDS ORDERED: DITROPAN XL5 MG PO (16:11)
[2019-05-18] MEDS ORDERED: LEVAQUIN500 MG PO (16:12)
[2019-05-18 16:40] VITALS: BP 118/65
--- NOTE | 2019-05-18 17:39 | NUR ---
PATIENT DISCHARGED FROM FACILITY. PATIENT GATHERED ALL PERSONAL BELONGINGS, DISCHARGE INSTRUCTIONS AND FOLLOW UP INFORMATION. PATIENT LEFT UNIT IN WHEELCHAIR AND WENT HOME VIA PRIVATE AUTO. NO SIGNS OF DISTRESS WHEN LEAVING FACILITY.
--- NOTE | 2019-07-03 07:13 | Operative Report ---
DATE OF PROCEDURE: 05/16/2019 SURGEON: Bi Rodas MD PREOPERATIVE DIAGNOSES: 1. Obstructive BPH. 2. Urinary tract infections. 3. Hematuria. 4. History of urolithiasis. POSTOPERATIVE DIAGNOSES: 1. Obstructive BPH. 2. Urinary tract infections. 3. Hematuria. 4. History of urolithiasis. 5. Urethral stricture disease. OPERATIONS PERFORMED: 1. Cystourethroscopy with dilation of both the navicularis stricture (separate procedure performed for the diagnosis of stricture). 2. Cystourethroscopy with bilateral ureteral catheterization and retrograde ureteropyelography (separate procedure performed for the urinary tract infections, hematuria and urolithiasis). 3. Interpretation of retrograde ureteropyelography. 4. Supervision of fluoroscopy, no radiologist present. 5. Cystourethroscopy with transurethral resection of the prostate utilizing the plasma button electrode. ANESTHESIA: General. COMPLICATIONS: None. CLINICAL SUMMARY: Juanito Robles is a 64-year-old man with a very large BPH. He underwent two transurethral procedures. The patient also has a history of urolithiasis, urinary tract infections and hematuria. He is brought for the above procedures. He is aware of the risks of bleeding, infection, injury to adjacent structures, incontinence, impotence, retrograde ejaculation, need for additional procedures and elected to proceed. OPERATIVE PROCEDURE IN DETAIL: Informed consent was verified. Juanito Robles Junior was properly identified taken to the operating room, placed in the cystoscopy table in supine position. Anesthesia was uneventfully begun. The patient was then carefully gently repositioned in dorsal lithotomy position. All pressure points well padded. His genitalia were prepared and draped in usual sterile fashion. A 22.5-Jamaican cystoscope sheath with the visual obturator in place was atraumatically inserted in the patient's urethral meatus. It could not be advanced past the stricture of the fossa navicularis. We then calibrated that stricture to approximately 14 to 16-Jamaican in size and dilated progressively to 30-Jamaican in size with sounds. This allowed us to place the cystoscope sheath back into the patient's urethra without any difficulties. It was then advanced down the otherwise unremarkable urethra through the normal sphincteric region into the prostate bed, which was significant for some residual tissue that caused visual obstruction. Some of this tissue may be a regrowth. We entered the patient's bladder where there were grade 2 trabeculations noted, but no tumors, no stones, no true diverticula. No suspicious mucosal lesions were identified. An 8-Jamaican catheter was used to cannulate each ureter and retrograde ureteral pyelograms were performed. Interpretation of retrograde ureteropyelography contrast was instilled in retrograde fashion bilaterally. There was dramatic J hooking with severe distal ureteral tortuosity. There was chronic appearing mild fullness of both upper tracts. No suspicious lesions were identified, but front and unobstructed drainage was observed bilaterally fluoroscopically. The scope was withdrawn the resectoscope was placed with the obturator in place. We then proceeded with utilizing a plasma button electrode to vaporize the residual prostate tissue from the bladder neck tube, but never passed the verumontanum and down the surgical capsule where hemostasis was accomplished with the Bovie cautery. The resectoscope was then withdrawn. A Davidson catheter was placed. It was placed on continuous irrigation. Belladonna and opium suppository were placed revealing a large prostate smooth and nonfunctional without any nodules. The patient was then uneventfully reversed from anesthesia and taken to recovery room in stable condition. There were no complications to the procedure. He tolerated the procedure well. We will proceed with routine postoperative care and of course lifelong urological followup. Bi Rodas MD [place]/MODL /[id number] cc: MD Jesenia Zaidi MD
== END 2019-05-18 17:40 | disposition home or self-care (01) | DRG 713 ==
LOC: OR 05:44 → PACU V 09:30 → MED/SURG 10:56
PROVIDERS: ADMIT Urology; ATTEND Urology
PROC: BT141ZZ Fluoroscopy of Kidneys, Ureters and Bladder using Low Osmolar Contrast (ICD-10-PCS; 2019-05-16)
PROC: 0T7D8ZZ Dilation of Urethra, Via Natural or Artificial Opening Endoscopic (ICD-10-PCS; 2019-05-16)
PROC: 0T788DZ Dilation of Bilateral Ureters with Intraluminal Device, Via Natural or Artificial Opening Endoscopic (ICD-10-PCS; principal; 2019-05-16 08:30)
PROC: 0VB08ZZ Excision of Prostate, Via Natural or Artificial Opening Endoscopic (ICD-10-PCS; 2019-05-16 08:30)
DX: N40.1 Benign prostatic hyperplasia with lower urinary tract symptoms (principal); N39.0 Urinary tract infection, site not specified; E11.65 Type 2 diabetes mellitus with hyperglycemia; Z79.4 Long term (current) use of insulin; Z79.84 Long term (current) use of oral hypoglycemic drugs; R33.8 Other retention of urine; F41.9 Anxiety disorder, unspecified; R31.9 Hematuria, unspecified; N35.919 Unspecified urethral stricture, male, unspecified site; I12.9 Hypertensive chronic kidney disease with stage 1 through stage 4 chronic kidney disease, or unspecified chronic kidney disease; N18.2 Chronic kidney disease, stage 2 (mild)
CPT/HCPCS: 36415; 74420; 80048; 82948; 83735; 85025; 87086; 93005; 96372; C1758; J0696; J1100; J1450; J1580; J1815; J1817; J2001; J2175; J2250; J2405; J3010; J3475; J7050